=== PATIENT | female | born 1990 | race Caucasian/White ===

== ENCOUNTER 2018-04-24 15:42 | Emergency (ER) | payer OTHER ==
--- NOTE | 2018-04-24 17:05 | ER Document Report ---
ED Medical Screen (RME) - General Chief Complaint: Pelvic Pain Stated Complaint: CATHETER PAIN POST SURGERY Time Seen by Provider: 04/24/18 17:00 Mode of Arrival: Ambulatory Information source: Patient Notes: 28-year-old female presents the emergency department with complaints of pain in the suprapubic area. She describes it as a contraction type of sensation. She states that it started today. Patient states that she had an hemorrhoidectomy done on Friday and went to [facility] yesterday as she was unable to empty her bladder. A Blount catheter was placed. Is been in place for 24 hours. She was referred to urology. She has not followed up with urology yet. She denies any nausea, vomiting, diarrhea, constipation, fever, chills. I have greeted and performed a rapid initial assessment of this patient. A comprehensive ED assessment and evaluation of the patient, analysis of test results and completion of the medical decision making process will be conducted by additional ED providers. PHYSICAL EXAMINATION: GENERAL: Well-appearing, well-nourished and in no acute distress. HEAD: Atraumatic, normocephalic. EYES: Pupils equal round extraocular movements intact, conjunctiva are normal. ENT: Nares patent NECK: Normal range of motion LUNGS: No respiratory distress Musculoskeletal: Normal range of motion NEUROLOGICAL: Normal speech, normal gait. PSYCH: Normal mood, normal affect. SKIN: Warm, Dry, normal turgor, no rashes or lesions noted. - Related Data Allergies/Adverse Reactions: cephalexin [From Keflex] Allergy (Verified 04/24/18 16:12) Physical Exam - Vital signs Vitals: Temp Pulse Resp BP Pulse Ox 98.3 F 99 13 113/69 97 04/24/18 16:35 04/24/18 16:35 04/24/18 16:35 04/24/18 16:35 04/24/18 16:35 Course - Vital Signs Vital signs: Temp Pulse Resp BP Pulse Ox 98.3 F 99 13 113/69 97 04/24/18 16:35 04/24/18 16:35 04/24/18 16:35 04/24/18 16:35 04/24/18 16:35
[2018-04-24 18:48] LABS: ABSOLUTE EOSINOPHILS # (AUTO) 0.2 10^3/uL (0.0-0.6); ABSOLUTE LYMPHOCYTES (AUTO) 2.7 10^3/uL (0.5-4.7); ABSOLUTE MONOCYTES (AUTO) 0.5 10^3/uL (0.1-1.4); ABSOLUTE NEUT (AUTO) 5.4 10^3/uL (1.7-8.2); BASOPHILS % (AUTO) 0.3 % (0-2); EOSINOPHILS % (AUTO) 2.3 % (0-6); HEMATOCRIT 39.8 % (36.0-47.0); HEMOGLOBIN 13.8 g/dL (12.0-15.5); LYMPHOCYTES % (AUTO) 30.1 % (13-45); MEAN CORPUSCULAR HGB CONC 34.7 g/dL (32.0-36.0); MEAN CORPUSCULAR VOLUME 92 fl (80-97); MONOCYTES % (AUTO) 5.8 % (3-13); PLATELET COUNT 300 10^3/uL (150-450); RED BLOOD COUNT 4.32 10^6/uL (3.72-5.28); RED CELL DISTRIBUTION WIDTH 13.1 % (11.5-14.0); SEGMENTED NEUTROPHILS % (AUTO) 61.5 % (42-78); TOTAL CELLS COUNTED % (AUTO) 100 %; WHITE BLOOD COUNT 8.8 10^3/uL (4.0-10.5)
[2018-04-24 18:52] LABS: APPEARANCE,URINE CLEAR; BILIRUBIN,URINE NEGATIVE (NEGATIVE); COLOR,URINE STRAW; GLUCOSE, URINE NEGATIVE (NEGATIVE); KETONES,URINE NEGATIVE (NEGATIVE); LEUKOCYTE ESTERASE,URINE NEGATIVE (NEGATIVE); NITRITE,URINE NEGATIVE (NEGATIVE); PROTEIN,URINE NEGATIVE (NEGATIVE); URINE SPECIFIC GRAVITY 1.013; UROBILINOGEN,URINE NEGATIVE mg/dL (<2.0)
[2018-04-24 19:33] LABS: ALANINE AMINOTRANSFERASE 41 U/L (9-52); ALBUMIN 4.5 g/dL (3.5-5.0); ALKALINE PHOSPHATASE 59 U/L (38-126); ANION GAP 10 (5-19); ASPARTATE AMINO TRANSFERASE 44 U/L (14-36); BILIRUBIN,DIRECT 0.2 mg/dL (0.0-0.4); BILIRUBIN,TOTAL 0.3 mg/dL (0.2-1.3); BLOOD UREA NITROGEN 6 mg/dL (7-20); CALCIUM 9.2 mg/dL (8.4-10.2); CARBON DIOXIDE 26 mmol/L (22-30); CHLORIDE 104 mmol/L (98-107); GLUCOSE 90 mg/dL (75-110); POTASSIUM 4.5 mmol/L (3.6-5.0); SODIUM 139.7 mmol/L (137-145); TOTAL PROTEIN 7.3 g/dL (6.3-8.2)
--- NOTE | 2018-04-24 21:03 | ER Document Report ---
ED General - General Chief Complaint: Pelvic Pain Stated Complaint: CATHETER PAIN POST SURGERY Time Seen by Provider: 04/24/18 17:00 Primary Care Provider: KRISTIAN HERNANDEZ [Primary Care Provider] - Follow up as needed Mode of Arrival: Ambulatory Information source: Patient, [facility] Records Notes: 28-year-old female presents the emergency department with complaints of pain in the suprapubic area. She describes it as a contraction type of sensation. She states that it started today. Patient states that she had an hemorrhoidectomy done on Friday and went to [facility] yesterday as she was unable to empty her bladder. A Blount catheter was placed. Is been in place for 24 hours. She was referred to urology. She has not followed up with urology yet. She denies any nausea, vomiting, diarrhea, constipation, fever, chills. - HPI Onset: Yesterday Quality of pain: Achy, Throbbing Severity: Moderate Associated symptoms: denies: Chills, Diarrhea, Fever, Nausea, Vomiting, Shortness of breath Exacerbated by: Walking Relieved by: Other - Removal of catheter Similar symptoms previously: No Recently seen / treated by doctor: Yes - Related Data Allergies/Adverse Reactions: cephalexin [From Keflex] Allergy (Verified 04/24/18 16:12) Past Medical History - General Information source: Patient - Social History Smoking Status: Never Smoker Frequency of alcohol use: None Drug Abuse: None Lives with: Spouse/Significant other Family History: Reviewed & Not Pertinent Patient has suicidal ideation: No Patient has homicidal ideation: No - Medical History Medical History: Negative Renal/ Medical History: Denies: Hx Peritoneal Dialysis Past Surgical History: Reports: Hx Section Review of Systems - Review of Systems Notes: REVIEW OF SYSTEMS: CONSTITUTIONAL : Denies fever, chills, or sweats. Denies recent illness. Denies weight loss, recent hospitalizations. EENT: Denies visual changes, eye pain. Denies sore throat, oral lesions, difficulty swallowing. CARDIOVASCULAR: Denies chest pain. Denies palpitations. Denies lower extremity edema. RESPIRATORY: Denies cough. Denies shortness of breath, wheezing. GASTROINTESTINAL: Denies abdominal distention. Denies nausea, vomiting, or diarrhea. Denies blood in vomitus, stools, or per rectum. Denies black, tarry stools. Denies constipation. GENITOURINARY: Denies difficulty urinating, painful urination, frequency, b lood in urine, or vaginal discharge. MUSCULOSKELETAL: Denies back or neck pain or stiffness. Denies joint pain or swelling. SKIN: Denies rash, lesions or sores. HEMATOLOGIC : Denies easy bruising or bleeding. LYMPHATIC: Denies swollen glands. NEUROLOGICAL: Denies confusion or altered mental status. Denies loss of consciousness. Denies dizziness or lightheadedness. Denies headache. Denies weakness or paralysis. Denies problems difficulty with ambulation, slurred speech. Denies sensory loss, numbness, or tingling. Denies seizures. PSYCHIATRIC: Denies anxiety or stress. Denies depression, suicidal ideation, or homicidal ideation. Denies visual or auditory hallucinations. Physical Exam - Vital signs Vitals: Temp Pulse Resp BP Pulse Ox 98.3 F 99 13 113/69 97 04/24/18 16:35 04/24/18 16:35 04/24/18 16:35 04/24/18 16:35 04/24/18 16:35 - Notes Notes: PHYSICAL EXAMINATION: GENERAL: Well-appearing, well-nourished and in no acute distress. HEAD: Atraumatic, normocephalic. EYES: Pupils equal round and reactive to light, extraocular movements intact, conjunctiva are normal. ENT: Nares patent, oropharynx clear without exudates. Moist mucous membranes. NECK: Normal range of motion, supple without lymphadenopathy LUNGS: Breath sounds clear to auscultation bilaterally and equal. No wheezes rales or rhonchi. HEART: Regular rate and rhythm without murmurs ABDOMEN: Soft, nontender, nondistended abdomen. No guarding, no rebound. No masses appreciated. Female : deferred Musculoskeletal: Normal range of motion, no pitting or edema. No cyanosis. NEUROLOGICAL: Cranial nerves grossly intact. Normal speech, normal gait. Yulisa l sensory, motor exams PSYCH: Normal mood, normal affect. SKIN: Warm, Dry, normal turgor, no rashes or lesions noted. Course - Re-evaluation Re-evalutation: Temp Pulse Resp BP Pulse Ox 98.3 F 99 13 113/69 97 04/24/18 16:35 04/24/18 16:35 04/24/18 16:35 04/24/18 16:35 04/24/18 16:35 04/24/18 21:00 28-year-old female presents with suprapubic pain. Patient underwent a hemorrhoidectomy 2 days prior to arrival at [facility]. She states after greater than 24 hours without being able to urinate she went back to [facility] yesterday where they placed a Blount catheter. Patient has had pain since that time. She is due to follow-up with urology in 1 week and was told to leave it in place until that time. Patient is tearful and states that her surgical site feels better than the catheter. Discussed if patient was unable to urinate that we would likely have to place another catheter but patient states that she is willing to try because she is so uncomfortable. 04/24/18 22:46 Catheter was removed and patient was able to urinate and have a bowel movement during her ED course. Advised to keep your urology appointment. Patient was evaluated and treated as appropriate for the patient's presenting symptoms and complaint, with consideration of any critical or life threatening conditions that may be associated with their obtained history and exam as noted above. All results were discussed with patient. Patient provided the opportunity to ask questions, and express concerns. Patient was educated on treatments based on their presumed diagnosis as noted above. At this time we will discharge the patient with return precautions and follow-up recommendations. Verbal discharge instructions given a the bedside. Medication warnings reviewed. Patient is in agreement with this plan and has verbalized understanding of return precautions. After careful consideration I feel that that patient can be safely discharged from the emergency department, they were advised to followup with a primary care physician in 2-3 days. Dictation on this chart was performed using voice recognition software and may result in unintended grammatical, spelling, syntax or errors. - Vital Signs Vital signs: Temp Pulse Resp BP Pulse Ox 98.6 F 80 16 122/72 100 04/24/18 21:12 04/24/18 21:12 04/24/18 21:12 04/24/18 21:12 04/24/18 21:12 - Laboratory Result Diagrams: 04/24/18 18:25 04/24/18 18:25 Laboratory results interpreted by me: 04/24/18 04/24/18 18:25 18:25 BUN 6 L Creatinine 0.45 L AST 44 H Urine Blood MODERATE H Discharge - Discharge Clinical Impression: Encounter for Blount catheter removal Blount catheter problem Qualifiers: Encounter type: initial encounter Qualified Code(s): T83.9XXA - Unspecified complication of genitourinary prosthetic device, implant and graft, initial encounter Condition: Good Disposition: HOME, SELF-CARE Instructions: Urinary Retention ([facility]) Additional Instructions: If you encounter the inability to urinate again he will likely require another catheter. Please return to the emergency department with any concerns that you may have. Please keep your appointment with urology that is scheduled in 1 week. Referrals: KRISTIAN HERNANDEZ [Primary Care Provider] - Follow up as needed
[2018-04-24 21:24] VITALS: BP 122/72
== END 2018-04-24 21:12 | disposition home or self-care (01) ==
LOC: ER 15:42
DX: Z46.6 Encounter for fitting and adjustment of urinary device (principal); T83.9XXA Unspecified complication of genitourinary prosthetic device, implant and graft, initial encounter; Y84.6 Urinary catheterization as the cause of abnormal reaction of the patient, or of later complication, without mention of misadventure at the time of the procedure; R10.2 Pelvic and perineal pain; Z98.890 Other specified postprocedural states; Z88.1 Allergy status to other antibiotic agents
CPT/HCPCS: 36415; 80053; 81001; 81025; 85025; 99283